=== PATIENT | female | born 1990 | race Two or more races ===

== ENCOUNTER → 2018-12-15 | Outpatient (CLI) | payer OTHER ==
[~2018-12-15] MED LIST: ACET500T68 PO; DOCU-109 PO; HYDR-3164 PO; METF500T16 PO; PNV1TABL25 PO; TIZA4TAB PO
[2018-12-15 16:08] LABS: BASO # 0.1 x10^3/uL (0.0-0.2); BASO % 1 % (0-3); EOS # 0.2 x10^3/uL (0.0-0.7); EOS % 2 % (0-3); HEMOGLOBIN 14.6 g/dL (12.0-15.5); LYMPH # 3.3 x10^3/uL (1.0-4.8); LYMPH % 44 % (24-48); MEAN CORPUSCULAR HEMOGLOBIN 30 pg (25-35); MEAN CORPUSCULAR HGB CONC 33 g/dL (31-37); MEAN CORPUSCULAR VOLUME 89 fL (79-100); MONO # 0.5 x10^3/uL (0.0-1.1); MONO % 7 % (0-9); NEUT # 3.5 x10^3uL (1.8-7.7); NEUT % 47 % (31-73); PLATELET COUNT 309 x10^3/uL (140-400); RED BLOOD COUNT 4.94 x10^6/uL (3.50-5.40); RED CELL DISTRIBUTION WIDTH 13.7 % (11.5-14.5); WHITE BLOOD COUNT 7.4 x10^3/uL (4.0-11.0)
[2018-12-15 16:25] LABS: ALBUMIN 3.6 g/dL (3.4-5.0); ALBUMIN/GLOBULIN RATIO 0.8 (1.0-1.7); CALCIUM 9.3 mg/dL (8.5-10.1); CREATININE 0.8 mg/dL (0.6-1.0); GFR 85.4; POTASSIUM 3.7 mmol/L (3.5-5.1); TOTAL BILIRUBIN 0.2 mg/dL (0.2-1.0); TOTAL PROTEIN 8.2 g/dL (6.4-8.2)
== END | disposition home or self-care (01) ==
LOC: SURGPAT 13:33
PROVIDERS: ATTEND Neurological Surgery
DX: Z01.818 Encounter for other preprocedural examination (principal); M51.16 Intervertebral disc disorders with radiculopathy, lumbar region
CPT/HCPCS: 36415; 80053; 85025; 87641

== ENCOUNTER 2018-12-22 08:36 | Day surgery (SDC) | payer OTHER ==
--- NOTE | 2018-12-19 16:42 | PREOP HP ---
DATE OF SERVICE: 12/22/2018. HISTORY OF PRESENT ILLNESS: The patient is a pleasant 27-year-old who is having difficulty with low back pain and right posterior lateral thigh and leg pain and numbness. Her problem started spontaneously in 07/2018. The pain tends to radiate from her back and her buttock and posterolateral thigh and leg. She notes numbness when she radiate across the dorsum of her right foot including the right great toe. She rates her pain as a 5/10 now. Sitting or lying down increases her pain. Standing for any length of time increases her pain. She has been taking tizanidine and Extra Strength Tylenol. She has had chiropractic treatment as well as physical therapy for 3-4 weeks twice a week without any benefit. She did have an IM steroid injection on Saturday, which she said caused right-sided numbness in her face and arms. PAST MEDICAL HISTORY: Headaches. PAST SURGICAL HISTORY: Catherine tooth extraction in 2012. FAMILY HISTORY: Cancer and diabetes. SOCIAL HISTORY: She is a customer support specialist. Single. Denies regular exercise. Denies substance abuse. Denies tobacco use. Drinks coffee and tea daily. ALLERGIES: No known drug allergies. CURRENT MEDICATIONS: metformin, triamcinolone, acid silicone, tizanidine, Tylenol. REVIEW OF SYSTEMS: A 12-point review of systems was obtained and is noncontributory except for that mentioned above. PHYSICAL EXAMINATION: NEUROSURGERY EXAMINATION: GENERAL APPEARANCE: Alert, pleasant, in no acute distress. HEAD: Normocephalic and atraumatic. SKIN: Warm and dry. MUSCULOSKELETAL: Lumbar paraspinal muscle bulk is normal, restricted range of motion of the lumbar spine, [id number] tenderness of the lower lumbar spine on palpation, normal range of motion of the lower extremities bilaterally. EXTREMITIES: No clubbing, cyanosis, or edema. NEUROLOGIC: Alert and oriented x 3. Normal recent and remote memory. Strength 5/5 in bilateral lower extremities. Sensory was intact to light touch in bilateral lower extremities except for decreased sensation at the dorsum of her right foot including right great toe. Reflexes were 1+ and symmetric in lower extremities bilaterally except for an absent right ankle jerk. Positive straight leg raising on the right with right posterior thigh and leg pain, relieved by Lasegue's maneuver. Negative straight leg raising on the left. Normal gait. IMAGING: I reviewed a lumbar MRI scan from 11/20/2018. On that study, the principal abnormalities are at L4-L5 with her right central paracentral disc protrusion which narrows right lateral recess and has a mass effect on the right L5 nerve root. ASSESSMENT/PLAN: She has a herniated lumbar disc and right lumbar radiculopathy, which is moderately severe. I discussed treatment options. Because of her reaction with IM steroid injections, she is not interested in any more steroids including epidural steroid injections. She had completed 4 weeks of physical therapy without benefit. She also had chiropractic treatment without sustained benefit. She would like to move forward with lumbar microdiscectomy surgery. I did discuss the surgery with her in detail including the diskectomy at L4-L5. I explained the risk of surgery including nerve root injury. I spoke about the possibility of disc recurrence, especially in young patients. I outlined the technique of the operation. I spoke about the expected postoperative course. She understands. She would like to go ahead. We will make the arrangements. ANJALI GALO MD DR: PERLITA/chino JOB#: [id number] / [id number] [place]OR[place]
[~2018-12-22] VITALS: Ht 160 cm; Wt 93.4 kg
[~2018-12-22 08:36] MED LIST changes: +BACITRACIN 50,000 UNIT in IV NORMAL SALINE 1000ML BAG 1,000 ML IRR ONE; +BUPIVAC MPF-EPI 0.5%-1:200000 30 ML VIAL. ONE; -DOCU-109 PO; +GELATIN SPONGE SIZE 12-7MM SPONGE. ONE; -HYDR-3164 PO; +HYDROmorphone 2 MG/ML VIAL IV PRN; +KETOROLAC 60 MG/2 ML INJ FOR OR. ONE; +LIDOCAINE 1% PF 2 ML VIAL. ID PRN; +MORPHINE SULFATE 2 MG/ML VIAL. IV PRN; +ONDANSETRON PF 4 MG/2 ML VIAL. IV PRN; +PROCHLORPERAZINE 10 MG/2 ML VIAL. IV PRN; +THROMBIN TOPICAL 20,000 UNIT SPRAY.SYRN KIT TP ONE; +fentaNYL PF VIAL 100 MCG/2 ML VIAL IV PRN
[2018-12-22] MEDS ORDERED: DEXAMETHASONE SOD PHOS 20 MG/5 ML VIAL. ONE (08:39)
[2018-12-22] MEDS ORDERED: ePHEDrine PF IN SALINE 50 MG/10 ML SYRINGE. IV ONE (08:39)
[2018-12-22] MEDS ORDERED: PHENYLEPHRINE in 0.9% NACL PF 1 MG/10 ML SYRINGE. IV ONE ×2 (08:39→12:21)
[2018-12-22] MEDS ORDERED: ONDANSETRON PF 4 MG/2 ML VIAL. ONE (08:39)
[2018-12-22] MEDS ORDERED: fentaNYL PF VIAL 100 MCG/2 ML VIAL ONE (08:40)
[2018-12-22] MEDS ORDERED: PROPOFOL 20 ML IV ONE (08:40)
[2018-12-22] MEDS ORDERED: PROPOFOL 50 ML IV ONE ×2 (08:40→12:45)
[2018-12-22] MEDS ORDERED: LIDOCAINE 2% PF 5 ML VIAL. ONE (08:40)
[2018-12-22] MEDS ORDERED: REMIFENTANIL 2 MG VIAL. IV ONE (08:40)
[2018-12-22] MEDS ORDERED: MIDAZOLAM HCL/PF 2 MG/2 ML VIAL. ONE (08:40)
[2018-12-22] MEDS ORDERED: ROCURONIUM 50 MG/5 ML VIAL. ONE (08:42)
[2018-12-22] MEDS ORDERED: ceFAZolin 2GM PREMIX 2 GM/50 ML BAG IV ONE (09:00)
[2018-12-22] MEDS: IV RINGERS,LACTATED 1000ML 1,000 ML IV SCH ×2 (09:19→14:05)
[2018-12-22] MEDS ORDERED: SUCCINYLCHOLINE 200 MG/10 ML VIAL. ONE (10:01)
[2018-12-22 10:04] LABS: U PREG PATIENT NEGATIVE (NEG)
[2018-12-22] MEDS ORDERED: GLYCOPYRROLATE 1 MG/5 ML VIAL. ONE (12:00)
[2018-12-22] MEDS ORDERED: NEOSTIGMINE METHYLSULFATE 5 MG/5 ML SYRINGE. ONE (12:00)
[2018-12-22] MEDS ORDERED: PHENYLEPHRINE 10 MG/ML VIAL. ONE (12:21)
[2018-12-22] MEDS ORDERED: HYDR-3164 PO (13:10)
[2018-12-22] MEDS ORDERED: DOCU-109 PO (13:10)
--- NOTE | 2018-12-22 13:11 | DISCH ---
DISCHARGE INSTRUCTIONS Condition on Discharge Condition on Discharge: Stable Activity After Discharge Activity Instructions for Disc: Activity as tolerated, Avoid exertion Other activity instructions: no drivnig for a week Bathing Instructions: Shower-keep dressing dry Lifting Instructions after Dis: No heavy lifting, No pulling or pushing, Do not lift >10 pounds Exercise Instruction after Dis: Walk 10 min, 3 x per day Diet after Discharge Additional Diet Restrictions: resume home diet Wound Incision Care Wound/Incision Care: Ice to area for comfort Other wound/incision instructi: may remove dressing in 48 hours if dry then may shower, no soaking Contacting the DRAndria after DC Call your doctor for: Concerns you may have Follow-Up Follow up with: Dr. Galo's nurse in 2 weeks [phone] ANJALI GALO MD December 22, 2018 13:11
[2018-12-22] MEDS ORDERED: DESFLURANE 61 TO 120 MINUTES IH ONE (13:19)
[2018-12-22] MEDS ORDERED: HYDROcodone/APAP 5/325MG 1 TAB TABLET PO ONE ×2 (14:30)
--- NOTE | 2018-12-22 15:03 | OP ---
DATE OF SURGERY: 12/22/2018 PREOPERATIVE DIAGNOSIS: Herniated lumbar disc, right L4-L5 with severe right lumbar radiculopathy. POSTOPERATIVE DIAGNOSIS: Herniated lumbar disc, right L4-L5 with severe right lumbar radiculopathy. OPERATION PERFORMED: Hemilaminotomy and microdiscectomy L4-L5, right. The operation was done with EMG monitoring, SSEP monitoring, fluoroscopy, microscopic dissection. SURGEON: Joe Galo M.D. HYDRAULICS TEACHER: NATASHA Swenson, assisted with the surgery. She assisted with the exposure and the microdiscectomy. OPERATIVE INDICATIONS: The patient is a pleasant 27-year-old who developed severe intractable back and right leg pain which failed conservative measures. She had a large focal disc herniation at L4-L5, which was central on the right side and was compressing the right L5 root and I recommended lumbar microsurgery after she failed conservative measures. She understood the surgery and the risks involved and she is excited to go ahead. DESCRIPTION OF PROCEDURE: Following general endotracheal anesthesia, the patient was positioned prone on the Travis frame. Lumbar region was prepped and draped in a standard fashion. LI hose and AV impulse boots were applied for DVT prophylaxis. The microscope was draped. Fluoroscopy was draped and brought into the field. Monitoring was established. Ancef 2 grams was given less than 1 hour prior to initiation of the surgery. Using fluoroscopic guidance, a midline incision was made directly over the L4-L5 interspace. I dissected down through skin and subcutaneous tissue, placed a Brandeis micro disc retractor. I brought in the microscope and the remainder of surgery was done with the microscope using microscopic technique. I burred down a hemilaminotomy and then trimmed away ligamentum flavum from medial and superiorly, inferolaterally and then when this was removed, I did perform a partial foraminotomy. The L5 root was markedly compressed and pushed laterally and it did have an early takeoff and paralleled the dura. I gently developed a plane lateral to the nerve and retracted it medially with a micro nerve root retractor and there was a large subligamentous disc herniation present. I carefully incised the ligament with a #11 blade, again through the microscope and then with a micropituitary and blunt hook, gently worked the disc back, so that it could grab it with a micropituitary and I gently began to remove this disc, a large fragment, which was removed as a single piece. This totally decompressed the region. A portion of the disc came from within the disc space. I carried out with my discectomy and removed any soft disc from the disc space. I then irrigated copiously with antibiotic solution. I coagulated a few epidural veins. The root at this point was very free and no longer under any compression. I gently laid Gelfoam over the hemilaminotomy site. I closed the fascia with absorbable suture after removing the retractor and again irrigated. The subcutaneous tissue was closed in layers and the skin was closed with 4-0 subcuticular stitch. The operation went very well. I was quite pleased with the surgery. JOE GALO MD DR: PERLITA/chino JOB#: [id number] / [id number] [place]
[2018-12-22 16:18] VITALS: BP 116/72
--- NOTE | 2018-12-24 15:06 | PATHOLOGY ---
[facility] Accession Number: [id number] . 01 Material submitted: . vertebral column - LUMBAR DISC AND DECOMPRESSION . 01 Clinical history: . Lumbar herniated disc and radiculopathy . 02 Diagnosis: Segments of fibrocartilaginous, adipose, and skeletal muscle tissue and bone, lumbar disc and decompression: - Degenerative changes of fibrocartilaginous tissue. ([facility] 12/24/2018) QTP/12/24/2018 . 02 Comment: There is no evidence of an acute inflammatory process or malignancy. ([facility] 12/24/2018) . 02 Electronically signed: . Rudy Garcia MD, Pathologist NPI- [id number] . 01 Gross description: . Received in formalin labeled "Anika Abdi, lumbar disc and decompression," are several pieces of glistening, fibrous tissue measuring 4.3 x 3.6 x 0.8 cm in aggregate dimensions, containing small fragments of possible bone. The tissue is submitted representatively in cassette A1, following decalcification. ([facility]; 12/22/2018) TOB/TOB . 02 Pathologist provided ICD-10: M51.36 . 02 CPT . 418977, [id number] Specimen Comment: A courtesy copy of this report has been sent to Specimen Comment: [phone], . Specimen Comment: Report sent to / DR FOSTER Performed at: 01 [facility] [address], [place] [id number] MD Luis Goldberg MD Phone: [phone] Performed at: 02 [facility] [address], [place] [id number] MD Rudy Garcia MD Phone: [phone]
== END 2018-12-22 17:36 | disposition home or self-care (01) ==
LOC: SURG 08:36
PROVIDERS: ATTEND Neurological Surgery
DX: M51.16 Intervertebral disc disorders with radiculopathy, lumbar region (principal); K08.409 Partial loss of teeth, unspecified cause, unspecified class; Z83.3 Family history of diabetes mellitus; Z79.899 Other long term (current) drug therapy; Z79.84 Long term (current) use of oral hypoglycemic drugs
CPT/HCPCS: 63030; 81025; 88304; 88311; 97116; 97162; 97530; A7015; G8978; G8979; G8980; J0171; J0696; J1100; J1885; J2001; J2250; J2370; J2405; J2704; J2710; J3010; J3490; J7030; 76000; J0330

== ENCOUNTER → 2018-12-26 | Outpatient (CLI) | payer OTHER ==
[2018-12-22 16:18] VITALS: BP 116/72
[~2018-12-26] MED LIST changes: -BACITRACIN 50,000 UNIT in IV NORMAL SALINE 1000ML BAG 1,000 ML IRR ONE; -BUPIVAC MPF-EPI 0.5%-1:200000 30 ML VIAL. ONE; +DOCU-109 PO; -GELATIN SPONGE SIZE 12-7MM SPONGE. ONE; +HYDR-3164 PO; -HYDROmorphone 2 MG/ML VIAL IV PRN; -KETOROLAC 60 MG/2 ML INJ FOR OR. ONE; -LIDOCAINE 1% PF 2 ML VIAL. ID PRN; -MORPHINE SULFATE 2 MG/ML VIAL. IV PRN; -ONDANSETRON PF 4 MG/2 ML VIAL. IV PRN; -PROCHLORPERAZINE 10 MG/2 ML VIAL. IV PRN; -THROMBIN TOPICAL 20,000 UNIT SPRAY.SYRN KIT TP ONE; -fentaNYL PF VIAL 100 MCG/2 ML VIAL IV PRN
--- NOTE | 2018-12-26 16:09 | KCIC ---
MRI Cervical Spine Without Contrast History: Cervical stenosis, neck pain, numbness in the hands for 4 days Technique: Multiplanar, multi sequential noncontrast MR imaging was performed of the cervical spine. Comparison: None Findings: Cervical vertebral body stature and AP alignment are maintained. Cervical cord caliber is within normal limits without focal signal abnormality. There is no significant marrow edema. Intervertebral disc spaces are adequate. There is mucous retention cyst in the inferior sphenoid sinus about 1.2 cm AP. C2-C3: Neural foramina and spinal canal are adequate. C3-C4: Spinal canal and neural foramina are adequate. C4-C5: Spinal canal and neural foramina are adequate. C5-C6: Neural foramina and spinal canal are adequate. C6-C7: Spinal canal and neural foramina are adequate. C7-T1: Neural foramina and spinal canal are adequate. Impression: 1. There is no significant abnormality of the cervical spine. 2. There is inferior sphenoid sinus mucous retention cyst. Electronically signed by: Wilbert Lima MD (12/26/2018 4:06 PM) [id number]
== END | disposition home or self-care (01) ==
LOC: KCIC 15:13
PROVIDERS: ATTEND Neurological Surgery
DX: M48.02 Spinal stenosis, cervical region (principal); J34.1 Cyst and mucocele of nose and nasal sinus
CPT/HCPCS: 72141